=== PATIENT | female | born 1965 | race Caucasian/White ===

== ENCOUNTER 2017-10-12 21:50 | Emergency (ER) | payer OTHER ==
[2017-10-12 22:23] LABS: ADD MAN DIFF? NO
[2017-10-12 22:25] LABS: BASO # 0.1 x10^3/uL (0.0-0.2); BASO % 1 % (0-3); EOS % 0 % (0-3); HEMATOCRIT 41.1 % (36.0-47.0); HEMOGLOBIN 13.8 g/dL (12.0-15.5); LYMPH % 41 % (24-48); MEAN CORPUSCULAR HEMOGLOBIN 31 pg (25-35); MEAN CORPUSCULAR HGB CONC 34 g/dL (31-37); MEAN CORPUSCULAR VOLUME 92 fL (79-100); MONO # 0.5 x10^3/uL (0.0-1.1); MONO % 10 % (0-9); NEUT # 2.3 x10^3uL (1.8-7.7); NEUT % 47 % (31-73); PLATELET COUNT 201 x10^3/uL (140-400); RED BLOOD COUNT 4.45 x10^6/uL (3.50-5.40); RED CELL DISTRIBUTION WIDTH 14.9 % (11.5-14.5); WHITE BLOOD COUNT 4.8 x10^3/uL (4.0-11.0)
[2017-10-12 22:36] LABS: ANION GAP 12 (6-14); BLOOD UREA NITROGEN 3 mg/dL (7-20); BUN/CREATININE RATIO 4 (6-20); CALCIUM 8.2 mg/dL (8.5-10.1); CARBON DIOXIDE 27 mmol/L (21-32); CHLORIDE 104 mmol/L (98-107); CREATININE 0.7 mg/dL (0.6-1.0); GFR 87.5; GLUCOSE 114 mg/dL (70-99); POTASSIUM 3.5 mmol/L (3.5-5.1); SODIUM 143 mmol/L (136-145)
[2017-10-12 22:41] LABS: ALBUMIN 2.9 g/dL (3.4-5.0); ALBUMIN/GLOBULIN RATIO 0.7 (1.0-1.7); ALK PHOS 128 U/L (46-116); ALT (SGPT) 36 U/L (14-59); AST (SGOT) 71 U/L (15-37); LIPASE 179 U/L (73-393); MAGNESIUM 1.9 mg/dL (1.8-2.4); TOTAL BILIRUBIN 0.5 mg/dL (0.2-1.0); TOTAL PROTEIN 6.8 g/dL (6.4-8.2)
[2017-10-12 22:44] LABS: TROPONINI < 0.017 ng/mL (0.000-0.055)
[2017-10-12 22:48] LABS: THYROID STIM HORMONE (TSH) 4.774 uIU/mL (0.358-3.74)
[2017-10-12 22:49] LABS: CKMB MASS < 0.5 ng/mL (0.0-3.6); CREATINE KINASE 29 U/L (26-192)
[2017-10-12 22:49] LABS: NT-PRO BNP 22 pg/mL (0-124)
[2017-10-12 23:08] LABS: AMPHETAMINE/METHAMPHETAMINE NEG (NEG); BARBITURATES NEG (NEG); BENZODIAZEPINES NEG (NEG); CANNABINOIDS NEG (NEG); COCAINE NEG (NEG); ETHANOL, URINE POS (NEG); METHADONE NEG (NEG); OPIATES NEG (NEG); PHENCYCLIDINE NEG (NEG)
[2017-10-12] MEDS: IV NORMAL SALINE 1000ML BAG 1,000 ML IV (23:30)
== END 2017-10-13 00:16 | disposition home or self-care (01) ==
LOC: ER 10-13 00:16
DX: E07.9 Disorder of thyroid, unspecified (principal); F10.20 Alcohol dependence, uncomplicated; G89.29 Other chronic pain
CPT/HCPCS: 36415; 71045; 80053; 80307; 82553; 83690; 83735; 83880; 84443; 84484; 85025; 93005; 96360; 99285-25; J7030